=== PATIENT | male | born 1965 | race Caucasian/White ===

== ENCOUNTER 2018-05-30 13:58 | Emergency (ER) | payer BC ==
[~2018-05-30] VITALS: Ht 198.1 cm; Wt 142.9 kg
[2018-05-30] MEDS ORDERED: ATOR40TA PO (14:11)
[2018-05-30] MEDS ORDERED: Naprosyn500 MG PO (15:39)
== END 2018-05-30 15:54 | disposition home or self-care (01) ==
LOC: ER 13:58
DX: S92.351A Displaced fracture of fifth metatarsal bone, right foot, initial encounter for closed fracture (principal); W22.8XXA Striking against or struck by other objects, initial encounter; E78.5 Hyperlipidemia, unspecified
CPT/HCPCS: 29515; 73610; 73630; 99283-25